=== PATIENT | male | born 1980 | race Caucasian/White ===

== ENCOUNTER 2020-08-25 08:09 | Outpatient (REF) | payer OTHER, SELFPAY ==
[2020-08-25 11:52] LABS: Alanine Aminotransferase 40 U/L (0-40); Albumin Level 4.3 g/dL (3.5-5.0); Alkaline Phosphatase 81 U/L (39-117); Anion Gap 13 (12-20); Aspartate Amino Transferase 28 U/L (5-37); Bilirubin Total 0.6 mg/dL (0.0-1.0); Blood Urea Nitrogen 20 mg/dL (9-16); Calcium 8.8 mg/dL (8.4-10.2); Carbon Dioxide 24 mmol/L (22-29); Chloride 109 mmol/L (96-108); Cholesterol 142 mg/dL; Estimated Glomerular Filt Rate > 60; Glucose Fasting 89 mg/dL (60-99); HDL Cholesterol 36 mg/dL; LDL Cholesterol Calculated 92 mg/dl; Potassium 4.4 mmol/L (3.3-5.1); Sodium 142 mmol/L (135-145); Total Protein 6.6 g/dL (6.5-8.0); Triglycerides 71 mg/dL
[2020-08-25 12:14] LABS: TSH reflex Free T4 0.29 uIU/mL (0.32-4.0)
[2020-08-25 12:50] LABS: Free T4 (Free Thyroxine) 0.87 ng/dL (0.71-1.85)
[2020-08-29 15:11] LABS: Testosterone, Free 46.8 pg/mL (35.0-155.0); Testosterone, Total 418 ng/dL (250-1100)
== END 2020-08-25 08:10 | disposition home or self-care (01) ==
LOC: HO.HMGCLDS 08:09
PROVIDERS: PCP Nurse Practitioner Family; Visit Provider Nurse Practitioner Family
DX: Z00.00 Encounter for general adult medical examination without abnormal findings (principal); N52.9 Male erectile dysfunction, unspecified
CPT/HCPCS: 36415; 80053; 80061; 84402; 84403; 84439; 84443

== ENCOUNTER 2020-08-26 14:02 | Outpatient (REF) | payer OTHER, SELFPAY ==
--- NOTE | ~2020-08-26 | US_ITS ---
EXAMINATION: US THYROID CLINICAL INFORMATION: Abnormal blood work COMPARISON: Ultrasound renal 06/16/2011. TECHNIQUE: Linear transducer grayscale and color Doppler examination with attention to the region of the thyroid. FINDINGS: SIZE: Measurements of the thyroid lobes and nodules are given in sagittal, anteroposterior and transverse dimensions respectively. Right Thyroid Lobe: 5.81 x 1.93 x 1.25 cm, volume 7.36 mL. Parenchyma: The gland echotexture is homogeneous. Thyroid vascularity is increased. Left Thyroid Lobe: 5.12 x 1.63 x 1.22 cm, volume 5.33 mL. Parenchyma: The gland echotexture is homogeneous. Thyroid vascularity is increased. Isthmus: 0.18 cm in maximum AP dimension. Estimated total number of nodules greater than or equal to 1 cm: 0. [employer] nodules are described as follows: NODES: No lymphadenopathy is seen in the tissue surrounding the thyroid gland. US/US thyroid IMPRESSION: Slightly hypervascular thyroid gland. The thyroid gland is normal in size and no nodule is seen.
== END 2020-08-26 14:03 | disposition home or self-care (01) ==
LOC: HO.HMGCX 14:02
PROVIDERS: PCP Nurse Practitioner Family; Visit Provider Nurse Practitioner Family
DX: R79.89 Other specified abnormal findings of blood chemistry (principal)
CPT/HCPCS: 76536

== ENCOUNTER 2020-10-28 07:37 | Outpatient (REF) | payer OTHER, SELFPAY ==
[2020-10-28 09:20] LABS: Free T4 (Free Thyroxine) 0.92 ng/dL (0.71-1.85); Thyroid Stimulating Hormone 0.36 uIU/mL (0.32-4.0); Vitamin D 25-OH Total 33.9 ng/mL (>30)
[2020-10-30 18:52] LABS: Triiodothyronine T3 Total 83 ng/dL (76-181)
[2020-10-31 04:32] LABS: Thyroglobulin Antibodies <1 IU/mL (< or = 1); Thyroid Peroxidase Antibodies <1 IU/mL (<9)
[2020-11-03 15:12] LABS: Thyroid Stimulating Immunoglob <89 % baseline (<140)
[2020-11-04 11:06] LABS: Thyrotropin Receptor Antibody <1.00 IU/L (<=2.00)
== END 2020-10-28 07:38 | disposition home or self-care (01) ==
LOC: HO.LAB 07:37
PROVIDERS: PCP Internal Medicine; Visit Provider Internal Medicine
DX: E05.90 Thyrotoxicosis, unspecified without thyrotoxic crisis or storm (principal); E55.9 Vitamin D deficiency, unspecified
CPT/HCPCS: 36415; 82306; 83520; 84439; 84443; 84445; 84480; 86376; 86800; 99202

== ENCOUNTER 2020-11-13 14:14 | Outpatient (REF) | payer OTHER, SELFPAY ==
--- NOTE | ~2020-11-13 | US_ITS ---
EXAMINATION: US THYROID CLINICAL INFORMATION: Thyrotoxicosis, unspecified without thyrotoxic crisis or storm. COMPARISON: Ultrasound soft tissue head/neck thyroid dated 08/26/2020. TECHNIQUE: Linear transducer grayscale and color Doppler examination with attention to the region of the thyroid. FINDINGS: SIZE: Measurements of the thyroid lobes and nodules are given in sagittal, anteroposterior and transverse dimensions respectively. Right Thyroid Lobe: 5.64 x 2.04 x 1.28 cm, volume 7.71 mL. Previously 5.81 x 1.93 x 1.25 cm, volume 7.36 mL. Parenchyma: The gland echotexture is homogeneous. Thyroid vascularity is increased. Left Thyroid Lobe: 5.09 x 1.66 x 1.26 cm, volume 5.59 mL. Previously 5.12 x 1.63 x 1.22 cm, volume 5.33 mL. Parenchyma: The gland echotexture is homogeneous. Thyroid vascularity is increased. Isthmus: 0.48 cm in maximum AP dimension. Previously 0.18 cm. No focal thyroid nodule is seen. NODES: No lymphadenopathy is seen in the tissue surrounding the thyroid gland. US/US thyroid IMPRESSION: Slightly hypervascular thyroid gland similar in size to previous study. No focal nodules seen. ACR TI-RADS RECOMMENDATION REFERENCE: Ultrasound-guided fine-needle aspiration, followup ultrasound, no further follow up. * TR1 (0 point) and TR 2 (2 points): No FNA or follow up * TR3 (3 points): FNA if more than or equal to 2.5 cm in maximum dimension, followup ultrasound in 1, 3 and 5 years if 1.5 to 2.4 cm in maximum dimension. * TR4 (4-6 points): FNA if more than or equal to 1.5 cm in maximum dimension, followup ultrasound in 1, 2, 3 and 5 years if 1 to 1.4 cm in maximum dimension. * TR5 (more than or equal to 7 points): FNA if more than or equal to 1 cm in maximum dimension, followup ultrasound every year for 5 years if 0.5 to 0.9 cm in maximum dimension. * TR3, TR4 or TR5 nodules that are below the size threshold for follow up receive no follow up.
== END 2020-11-13 14:15 | disposition home or self-care (01) ==
LOC: HO.HMGCX 14:14
PROVIDERS: PCP Nurse Practitioner Family; Visit Provider Internal Medicine
DX: E05.90 Thyrotoxicosis, unspecified without thyrotoxic crisis or storm (principal)
CPT/HCPCS: 76536

== ENCOUNTER → 2020-12-02 10:24 | Outpatient (REF) | payer OTHER, SELFPAY ==
--- NOTE | ~2020-12-02 | NM_ITS ---
EXAMINATION: THYROID UPTAKE AND SCAN CLINICAL INFORMATION: Thyrotoxicosis. COMPARISON: No previous radionuclide thyroid scan is available for comparison. Thyroid ultrasound dated 11/13/2020 is available for comparison. TECHNIQUE: Following the oral administration of 270 microcuries of I-123 sodium iodide, thyroid uptake was performed and expressed as a percentage of the administrated dose. Gamma scintillation camera images of the thyroid in the anterior and right and left anterior oblique views were obtained using a pinhole collimator following the administration of 10 mCi Tc-99m pertechnetate. FINDINGS: The uptake is 7.6% at 4 hours and 14.1% at 24 hours (Normal radioiodine uptake at 24 hours is 10% to 30%). The radioiodine uptake is normal. The radiopertechnetate thyroid scintigram demonstrates the thyroid gland to be normal in size, shape, and position. There is homogeneous distribution of activity within the the gland with no focal abnormalities noted. The trapping function appears normal. NM/NM thyroid w uptake IMPRESSION: Normal radioiodine uptake. Normal thyroid scan.
== END ==
LOC: HO.NUCMED 10:24
PROVIDERS: PCP Internal Medicine; Visit Provider Internal Medicine
DX: E05.90 Thyrotoxicosis, unspecified without thyrotoxic crisis or storm (principal)
CPT/HCPCS: 78014; A9512; A9516

== ENCOUNTER → 2020-12-23 08:40 | Outpatient (BNVA) | payer OTHER, SELFPAY | PROVIDERS: PCP Nurse Practitioner Family; Visit Provider Internal Medicine | DX: E05.90 Thyrotoxicosis, unspecified without thyrotoxic crisis or storm (principal); E55.9 Vitamin D deficiency, unspecified | CPT/HCPCS: 99212 ==

== ENCOUNTER 2021-11-08 09:14 | Outpatient (REF) | payer OTHER, SELFPAY ==
--- NOTE | ~2021-11-08 | XR_ITS ---
EXAMINATION: XR HAND, RIGHT CLINICAL INFORMATION: Contusion COMPARISON: None TECHNIQUE: PA, lateral, and oblique views of the right hand. FINDINGS: Visualized portion of the distal radius and ulna demonstrate no fracture. Carpal rows are well aligned. No carpal bone fracture. No metacarpal or phalangeal fracture. No focal soft tissue swelling of the hand. No radiopaque foreign body. XR/XR hand RT min 3V IMPRESSION: No fracture.
== END 2021-11-08 09:15 | disposition home or self-care (01) ==
LOC: HO.HMGCX 09:14
PROVIDERS: PCP Nurse Practitioner Family; Visit Provider Internal Medicine
DX: S60.221A Contusion of right hand, initial encounter (principal)
CPT/HCPCS: 73130

== ENCOUNTER → 2022-03-28 13:42 | Outpatient (REF) | payer OTHER, SELFPAY ==
--- NOTE | 2022-03-28 14:17 | HM_ITS ---
* Total monitoring time, 7 days. * Underlying rhythm is sinus. Average ventricular rate 60/Min. Range 38 to 152/Min. Sinus tachycardia present 2.5% the time. * Rare PACs and PVCs with minimal burden. * No significant pauses or AV blocks. * Patient markers noted in association with sinus rhythm. MTDD
== END ==
LOC: HO.CARD 13:42
PROVIDERS: Visit Provider Nurse Practitioner Family
DX: R00.2 Palpitations (principal)
CPT/HCPCS: 93242

== ENCOUNTER 2022-05-24 09:06 | Outpatient (REF) | payer OTHER, SELFPAY ==
--- NOTE | ~2022-05-24 | XR_ITS ---
EXAMINATION: XR ELBOW, LEFT CLINICAL INFORMATION: Elbow pain status post unspecified injury. COMPARISON: None available. TECHNIQUE: AP, lateral, and oblique views of the left elbow. FINDINGS: There is no acute fracture or dislocation. The joint spaces are unremarkable. Mild calcification is seen at the triceps tendon insertion on the olecranon posteriorly. Mild overlying soft tissue swelling. XR/XR elbow LT min 3V IMPRESSION: Mild soft tissue swelling posteriorly. Mild calcification overlying of the distal aspect of the triceps tendon does not appear acute and is likely degenerative in nature/secondary to old injury. Correlate with physical exam and trauma history.
== END 2022-05-24 09:07 | disposition home or self-care (01) ==
LOC: HO.HMGCX 09:06
PROVIDERS: PCP Nurse Practitioner Family; Visit Provider Emergency Medicine
DX: S59.902D Unspecified injury of left elbow, subsequent encounter (principal)
CPT/HCPCS: 73080

== ENCOUNTER → 2022-06-21 13:25 | Outpatient (BNVA) | payer OTHER, SELFPAY | PROVIDERS: PCP Nurse Practitioner Family; Referring Provider Nurse Practitioner Family; Visit Provider Surgery | DX: K42.9 Umbilical hernia without obstruction or gangrene (principal) | CPT/HCPCS: 99202 ==

== ENCOUNTER 2022-07-08 10:21 | Day surgery (SDC) | payer OTHER, SELFPAY ==
[2022-07-06 10:37] VITALS: BMI 25.1
--- NOTE | 2022-07-07 09:04 | P.CONAN_ITS ---
Documented by User: Rosa Andrade NP 07/07/22 09:06 HPI - Anesthesia Eval Consult details Narrative: 42yo M for open Umbilical Hernia Repair with mesh PMFSH Active Problems Active Problems: All Active Problems (Updated 07/06/22 @ 10:35 by Drea Amaya RN) Pharyngitis (Acute) Atypical chest pain (Acute) Erectile dysfunction (Acute) Physical exam (Acute) Low TSH level (Acute) Foot callus (Acute) Physical exam (Acute) Plantar fasciitis, bilateral (Acute) Lesion of uvula (Acute) Impacted cerumen of right ear (Acute) Contusion of hand, right (Acute) Palpitations (Acute) Anxiety (Acute) Umbilical hernia (Acute) ADHD (Acute) Vitamin D deficiency (Acute) Hyperthyroidism (Acute) Erectile dysfunction (Acute) Past Medical History Medical History Erectile dysfunction Hx of attention deficit hyperactivity disorder Hyperthyroidism Vitamin D deficiency Family History Family History Father Knee problem Mother No problems noted. Surgical History Surgical History History of left inguinal hernia repair Hx of knee surgery Social History Social History Housing: Apartment Are you a primary patient care secretary to a significant other at home: No Do you presently have visiting nurse or other home services: No Alcohol intake: never Patient Tobacco Use Status: Former Tobacco user Quit Date: 1 yr ago Tobacco use type: Cigarette Cigarette Packs Per Day: 1 Years Smoked: 12 e-Cigarette/Vaping Use: Currently Using Second Hand Smoke Exposure: Yes Use of substances other than those prescribed or required for medical reasons: Yes Substance Use Type: Marijuana Substance Use Type Other:: Helps w/ ADHD Substance Use Frequency: Daily Have you been hit, kicked, punched, or otherwise hurt by someone within the past year? 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 * Underlying rhythm is sinus.? Average ventricular rate 60/Min.? Range 38 to 152/Min.? Sinus tachycardia present 2.5% the time. * Rare PACs and PVCs with minimal burden. * No significant pauses or AV blocks. * Patient markers noted in association with sinus rhythm. Assessment and Plan Assessment Anesthesia Assessment: Chart Reviewed Documented by User: Mallory Nixon MD 07/08/22 12:51 [facility] Past Medical History Medical History Erectile dysfunction Hx of attention deficit hyperactivity disorder Hyperthyroidism Vitamin D deficiency Family History Family History Father Knee problem Mother No problems noted. Surgical History Surgical History History of left inguinal hernia repair Hx of knee surgery History of Problems with Anesthesia: No Social History Social History Housing: Apartment Are you a primary patient care secretary to a significant other at home: No Do you presently have visiting nurse or other home services: No Alcohol intake: never Patient Tobacco Use Status: Former Tobacco user Quit Date: 1 yr ago Tobacco use type: Cigarette Cigarette Packs Per Day: 1 Years Smoked: 12 e-Cigarette/Vaping Use: Currently Using Second Hand Smoke Exposure: Yes Use of substances other than those prescribed or required for medical reasons: Yes Substance Use Type: Marijuana Substance Use Type Other:: Helps w/ ADHD Substance Use Frequency: Daily Have you been hit, kicked, punched, or otherwise hurt by someone within the past year? 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 * Underlying rhythm is sinus.? Average ventricular rate 60/Min.? Range 38 to 152/Min.? Sinus tachycardia present 2.5% the time. * Rare PACs and PVCs with minimal burden. * No significant pauses or AV blocks. * Patient markers noted in association with sinus rhythm. Airway Mallampati Class: III TM Dist: >3cm Neck ROM: Full Loose/Missing/Broken Teeth: No Heart: RRR Lungs: CTA Assessment and Plan Assessment Anesthesia Assessment: Anesthesia Plan Discussed Final Anesthetic Review History of Problems with Anesthesia: No NPO: Yes ASA Class: II Final Preanesthetic Review: Meds/Allgs Chart Reviewed, Consent Obtained/Reviewed and Anes Risks/Benef Reviewed Patient Risk: Low Procedure Risk: Low Anesthetic Plan Anesthetic Plan: GA Disposition: Standard PACU
--- NOTE | 2022-07-07 14:28 | MHC.SHP ---
Pre-Procedural Eval Section A Date of Service: 07/07/22 The patient is an INPATIENT: No Changes since office visit: No Cold of Flu in the past 2 weeks, No New Medical Problems, No Changes in Medication and No Patient answered all questions The History & Physical has been completed within 30 days and I have reviewed it.: Yes Section B Chief Complaint: Umbilical hernia without obstruction or gangrene Allergies: Allergies Allergy/AdvReac Type Severity Reaction Status Date / Time No Known Allergies Allergy Mild NONE Verified 07/06/22 10:27 Plan I have reviewed the history and physical and performed a pertinent physical examination on my patient. No changes have occurred unless specified. Time Spent With Patient Time: Total time managing care of this patient today ____ minutes.
[2022-07-08 12:32] VITALS: BP 122/65; PULSE 68; RESP 18; TEMP 36.6; O2SAT 100
[2022-07-08] MEDS: Lactated Ringers 1,000 ML 100 ML IVCONT (13:09)
--- NOTE | 2022-07-08 14:45 | W.PM.OPN ---
Operative Note Operative Note Date of Service: 07/08/22 Narrative: Preoperative diagnosis: [] Incarcerated umbilical hernia Postop diagnosis: [] Same Procedure [] repair incarcerated umbilical hernia with Bard mesh Surgeon: [] [place] Scrap Drop Engineer: [] eliel Gardner Type of Anesthesia: [] General Indication for surgery: [] Incarcerated umbilical hernia hernia measuring approximately 3 cm with omental contents Findings: []. She was brought to the OR, placed in your table in the supine position, and after adequate level of general anesthesia with was induced, the patient's abdomen was prepped and draped in usual sterile fashion. Back advancing supraumbilical curvilinear incision, this carried down through skin, subcutaneous tissue, where an incarcerated hernia sac was identified. This was dissected off the posterior aspect of the umbilicus and dissected down to the fascia. Sac was opened wearing incarcerated omental contents were amputated and sent to pathology. The residual omentum was tied using 3-0 Vicryl tie and return to down the cavity. The fascia margins were circumferentially cleared in a Bard mesh placed in defect. The superficial layer of the mass was circumferentially sutured to the surrounding fascia using 0 Ethibond sutures. At completion of procedure, mesh was in very good position with no tension. The wound Was irrigated, secured hemostasis, and closed in the following manner; posterior aspect of the umbilicus was tacked to the wound floor using up to 3-0 Vicryl sutures. Incision was closed using interrupted inverted dermal 3-0 Vicryl sutures followed by Steri-Strips and sterile dressings. Wound was infiltrated 0.5% Marcaine at completion. Sponge, needle, and instrument counts were reported to be correct. Patient tolerated the procedure well and emerged anesthesia and stable condition. EBL minimal
[2022-07-08 15:00] VITALS: BP 120/70; PULSE 79; RESP 20; TEMP 36.8; O2SAT 99
[2022-07-08 15:05] VITALS: BP 112/68; PULSE 57; RESP 18; O2SAT 99
[2022-07-08 15:10] VITALS: BP 113/63; PULSE 57; RESP 18; O2SAT 99
[2022-07-08 15:15] VITALS: BP 104/66; PULSE 63; RESP 16; O2SAT 97
[2022-07-08 15:30] VITALS: BP 117/80; PULSE 61; RESP 15; TEMP 36.8; O2SAT 96
== END 2022-07-08 15:34 | disposition home or self-care (01) ==
PROVIDERS: PCP Nurse Practitioner Family; Visit Provider Surgery
PROC: (CPT 49594; principal; 2022-07-08 12:20)
DX: K42.0 Umbilical hernia with obstruction, without gangrene (principal)
CPT/HCPCS: 49594; 88304; C1781; J0690; J1100; J1170; J2250; J2405; J2795; J3010

== ENCOUNTER → 2022-07-15 08:41 | Outpatient (BNVA) | payer OTHER, SELFPAY | PROVIDERS: PCP Nurse Practitioner Family; Visit Provider Surgery ==

== ENCOUNTER 2022-12-10 09:38 | Outpatient (AMB) | payer OTHER, SELFPAY ==
[2022-12-10 11:27] VITALS: BP 130/76; PULSE 49; O2SAT 97; BMI 26.2
--- NOTE | 2022-12-10 11:27 | MHC.OFFWIV ---
Intake Vital Signs 12/10/22 11:27 Height 5 ft 9 in Weight 177 lb 2 oz BMI 26.2 BP 130/76 Blood Pressure Location Lt brachial Position Sitting Pulse 49 L Pulse Source Pulse Oximeter Pulse Oximetry (%) 97 Oxygen Delivery Method Room Air Intake Visit Reasons: EP-Bump in back of [phone] Intake Note: Patient is here with bump in his neck and back of his tongue, like a mass. He states it's been 2-3 days. Patient Tobacco Use Status: Former Tobacco user Quit Date: 1 yr ago Allergies No Known Allergies Allergy (Mild, Verified 12/10/22 11:28) NONE Do you need a note to return to daycare/school/sports/work: No HPI HPI Comments History of Present Illness Details This is a 42-year-old male who presents to the office today for sick visit. Patient complaining of a lump on the back of his throat. Patient states he was getting musculoskeletal pain radiating from his neck into his throat, which occurred only when he was lifting and pushing his head against the lifting bench. One day, he looked in his throat to make sure there was nothing more serious going on and he noticed a lump on the back of his throat. He denies any stridor/wheezing, throat swelling, difficulty swallowing, or difficulty breathing. He states the lump is not bothersome or troublesome but he wanted it evaluated. [facility] Medical History Vitamin D deficiency Hyperthyroidism Hx of attention deficit hyperactivity disorder Erectile dysfunction Surgical History H/O umbilical hernia repair (07/08/22) History of left inguinal hernia repair Hx of knee surgery Family History Father Knee problem Mother No problems noted. 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 Current occupational exposures/hazards: Yes Cognitive needs: No Hearing needs: No Vision needs: No Review of Systems Const All systems reviewed & are unremarkable except as noted in HPI and below Reports no additional complaints Eyes Reports no additional complaints ENT Reports no additional complaints Card Reports no additional complaints Resp Reports no additional complaints GI Reports no additional complaints Reports no additional complaints Musc Reports no additional complaints Skin/Breast Reports system reviewed and no additional complaints, except as documented Neuro Reports no additional complaints Psych Reports no additional complaints Endo Reports no additional complaints Pablito/Lymph Reports no additional complaints Aller/Immun Reports no additional complaints Physical Exam Vital Signs: Last Vital Signs Pulse 49 L 12/10/22 11:27 BP 130/76 12/10/22 11:27 Pulse Ox 97 12/10/22 11:27 Oxygen Delivery Method Room Air 12/10/22 11:27 BMI result Body Mass Index 26.2 Const Other: Vital signs reviewed. Constitutional: Non-toxic appearing. No acute distress. Well-developed and well-nourished. HEENT: Normocephalic and atraumatic. There is a nodule on the right side of his posterior tongue. There is no fluctuance or induration. There is no drainage. There is no erythema. Appears to be normal tongue tissue. No pharyngeal edema or erythema or exudates. Skin: Warm and dry. No rashes or lesions noted. Neck: Full and painless range of motion. No cervical lymphadenopathy. Cardio: Regular rate. No lower extremity edema. No JVD. Pulmonary: No respiratory distress. No accessory muscle usage. No stridor or audible wheezing. Gastrointestinal: Soft, nontender, and nondistended in all 4 quadrants. Musculoskeletal: Normal range of motion in joints throughout the body. No deformity or other signs of injury. Neuro: Alert and oriented x4. Cranial nerves 2-12 grossly intact. No focal deficits appreciated. Psych: Normal mood and affect. Assessment & Plan Assessment & Plan (1) Nodule of tongue: Code(s): R22.0 - Localized swelling, mass and lump, head Plan: This is a 42-year-old male who presents to the office complaining of a bump on the back of his tongue. On physical examination, there is a nodule which appears to be normal tongue tissue without erythema, drainage, or fluctuance. This nodule does not appear to be causing an airway obstruction or inflammation of the pharynx. He states this nodule is not bothersome or troublesome. His vital signs are stable, his physical exam is otherwise benign, and patient is overall nontoxic appearing. I recommended the patient follow-up with his primary care physician as soon as possible in order to obtain referral for possible biopsy to rule out a malignancy. I have also sent patient with 5% lidocaine patches for his musculoskeletal pain while he is exercising. Patient was advised to follow-up with the emergency room if he were to develop any throat swelling, difficulty breathing, wheezing, or stridor. Patient verbalized understanding and is agreeable with the plan. Medications: New lidocaine 5% leave on most painful area for up to 12 hrs 1 patch topical DAILY 30 ea 0RF Coding Level of Care Code Est Pt Level 3 (13478) Diagnoses Nodule of tongue R22.0
== END 2022-12-10 11:54 | disposition home or self-care (01) ==
PROVIDERS: PCP Nurse Practitioner Family; Visit Provider Physician Assistant Medical
DX: R22.0 Localized swelling, mass and lump, head (principal)
CPT/HCPCS: 99051; 99213

== ENCOUNTER 2022-12-28 08:02 | Outpatient (AMB) | payer OTHER, SELFPAY ==
--- NOTE | 2022-12-28 08:04 | MHC.PC.OV ---
Vital Signs 12/28/22 08:06 Height 5 ft 9 in Weight 178 lb BMI 26.3 BP 138/80 Blood Pressure Location Rt brachial Position Sitting Pulse 56 Pulse Source Pulse Oximeter Pulse Oximetry (%) 98 Oxygen Delivery Method Room Air Intake Visit Reasons: Annual PE Allergies No Known Allergies Allergy (Mild, Verified 12/28/22 08:06) NONE Tobacco use date assessed: 06/14/22 Dental Screening Dental Screen Date: 12/28/22 Did you have a dental visit in the last 12 months?: No Did you have a dental problem in the last 6 months where you did not have access to dental care?: No Was dental information given to patient?: Patient has dentist HPI Annual PE HPI Details pt is here for a PE. pt does not smoke cigarettes but marijuana. He reports having a tongue lesion to the right base of his tongue. Will refer to ENT [facility] Medical History (Updated 12/28/22 @ 08:29 by KONG FullerMEGAN) Vitamin D deficiency Hyperthyroidism Hx of attention deficit hyperactivity disorder Erectile dysfunction Surgical History H/O umbilical hernia repair (07/08/22) History of left inguinal hernia repair Hx of knee surgery Family History Father Knee problem Mother No problems noted. 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 Rome Arias, Tika Brumfield, Angel Ortiz and colleagues, with an educational tyrese from [employer]. Review of Systems Const Denies chills and Denies fever(s) Eyes Denies blurry vision ENT Denies vertigo, Denies dizziness and Denies sore throat Card Denies chest pain at rest, Denies chest pain with activity, Denies diaphoresis, Denies dyspnea and Denies dyspnea on exertion Resp Denies cough, Denies dyspnea, Denies dyspnea on exertion and Denies wheezing GI Denies abdominal pain, Denies melena, Denies hematochezia, Denies constipation, Denies diarrhea and Denies loose stools Denies hematuria Musc Denies numbness and Denies tingling Skin/Breast Denies lesions Neuro Denies vertigo, Denies dizziness, Denies numbness and Denies tingling Psych Denies anxiety, Denies depression, Denies homicidal ideation, Denies suicidal ideation and Denies other (substance abuse) Aller/Immun Denies wheezing Physical exam (Primary Care) Vital Signs: Last Vital Signs Pulse 56 12/28/22 08:06 BP 138/80 12/28/22 08:06 Pulse Ox 98 12/28/22 08:06 Oxygen Delivery Method Room Air 12/28/22 08:06 BMI result Body Mass Index 26.3 Tobacco/Smoking Status: Tobacco use Status Tobacco use date assessed 06/14/22 12/28/22 08:09 Patient Tobacco Use Status Former Tobacco user 12/28/22 08:09 Tobacco use type Cigarette 12/28/22 08:09 e-Cigarette/Vaping Use Currently Using 12/28/22 08:09 Thrive Assessment: Date of Thrive Assessment Date Thrive assessed 03/17/22 12/28/22 08:09 Const General: cooperative Nutritional Appearance: well nourished Orientation/consciousness: patient oriented x3 HENMT Other: base of right tongue with small raised whitish lesion. Head: Yes normal to inspection, Yes normocephalic and Yes atraumatic Ears: TM normal on the right and TM normal on the left Eyes General: appearance normal, both eyes and all related structures Alignment and Position: alignment normal and position normal Neck Neck: Yes normal visual inspection and Yes no lymphadenopathy Resp Effort & Inspection: normal respiratory effort Auscultation: clear to auscultation bilaterally Cardio Rate: regular rate Rhythm: regular rhythm Heart sounds: S1 normal heart sound present, S2 normal heart sound present and no murmurs GI Palpation (GI): Soft to palpation and nontender Auscultation: normal bowel sounds Other: refused Skin Rashes: no rashes Neuro General: patient oriented x3, moves all extremities, no focal motor deficits and deep tendon reflexes 2+ bilaterally Romberg Test: Negative Extrem Right lower extremity: no edema Left lower extremity: no edema Psych Affect: normal affect Attitude: cooperative Thought process: Normal thought process present Assessment and Plan Assessment & Plan (1) Physical exam: Code(s): Z00.00 - Encounter for general adult medical examination without abnormal findings (2) Tongue lesion: Code(s): K14.8 - Other diseases of tongue Orders: Orders UA CC w/rflx Micro + Cult Today Z00.00 - Encounter for general adult medical examination without abnormal findings Lipid Panel Today Z00.00 - Encounter for general adult medical examination without abnormal findings Complete Blood Count Auto Diff Today Z00.00 - Encounter for general adult medical examination without abnormal findings Comprehensive [place]. Panel Fast Today Z00.00 - Encounter for general adult medical examination without abnormal findings TSH reflex Free T4 Today Z00.00 - Encounter for general adult medical examination without abnormal findings Referrals Ear/Nose/Throat Referral K14.8 - Other diseases of tongue Coding Level of Care Code Est Pt Prev Care 40-64y(02355) Diagnoses Physical exam Z00. Tongue lesion K14.8
[2022-12-28 08:06] VITALS: BP 138/80; PULSE 56; O2SAT 98; BMI 26.3
== END 2022-12-28 08:42 | disposition home or self-care (01) ==
PROVIDERS: PCP Nurse Practitioner Family; Visit Provider Nurse Practitioner Family
DX: Z00.00 Encounter for general adult medical examination without abnormal findings (principal); K14.8 Other diseases of tongue
CPT/HCPCS: 99396

== ENCOUNTER 2023-03-01 09:04 | Outpatient (AMB) | payer OTHER, SELFPAY ==
[2023-03-01 09:59] VITALS: BP 127/72; PULSE 87; TEMP 36.7; O2SAT 97; BMI 26.1
--- NOTE | 2023-03-01 09:59 | MHC.OFFWIV ---
Intake Vital Signs 03/01/23 09:59 Height 5 ft 9 in Weight 176 lb 8 oz BMI 26.1 BP 127/72 Blood Pressure Location Rt brachial Position Sitting Pulse 87 Pulse Source Pulse Oximeter Temp 98.1 F Temp Source Temporal Artery Scan Pulse Oximetry (%) 97 Oxygen Delivery Method Room Air Intake Visit Reasons: EP, swollen glands, neck pain([phone]) Intake Note: pt is here today for swollen gland neck pain started 2 months ago Patient Tobacco Use Status: Former Tobacco user Quit Date: 1 yr ago Allergies No Known Allergies Allergy (Mild, Verified 03/01/23 10:30) NONE Medication List - Last Reconciled 03/01/23 by Ridge Lewis MD No Known Home Meds Do you need a note to return to daycare/school/sports/work: Yes HPI EP, swollen glands, neck pain([phone]) HPI Details 42-year-old male presents to the office for a sick visit. Two months ago patient was then shingles weights at the gym and he felt a snap in the neck. Subsequently he has been having pain and discomfort radiating into both sides of the neck into the shoulder. He also has noticed some discomfort on the right side of his jaw. For an unrelated reason, he has been seeing a year nose throat physician who has a procedure planned. This involves removing a lesion from the back of his throat. Patient smokes tobacco regularly for many years. [facility] Medical History (Updated 12/28/22 @ 08:29 by KONG Fuller-MEGAN) Vitamin D deficiency Hyperthyroidism Hx of attention deficit hyperactivity disorder Erectile dysfunction Surgical History H/O umbilical hernia repair (07/08/22) History of left inguinal hernia repair Hx of knee surgery Family History Father Knee problem Mother No problems noted. Social History Housing: Apartment Are you a primary patient care specialist to a significant other at home: No Do you presently have visiting nurse or other home services: No Alcohol intake: never Patient Tobacco Use Status: Former Tobacco user Quit Date: 1 yr ago Tobacco use type: Cigarette Cigarette Packs Per Day: 1 Years Smoked: 12 e-Cigarette/Vaping Use: Currently Using Second Hand Smoke Exposure: Yes Substance Use Type: Marijuana Current occupational status: employed Current occupation: [employer] Current occupational exposures/hazards: Yes Cognitive needs: No Hearing needs: No Vision needs: No Physical Exam Vital Signs: Last Vital Signs Temp 98.1 F 03/01/23 09:59 Pulse 87 03/01/23 09:59 BP 127/72 03/01/23 09:59 Pulse Ox 97 03/01/23 09:59 Oxygen Delivery Method Room Air 03/01/23 09:59 BMI result Body Mass Index 26.1 Const General: cooperative and healthy appearing Nutritional Appearance: well nourished Orientation/consciousness: patient oriented x3 Limitations: no limitations HEENT Head: Yes normal to inspection Eyes General: appearance normal, both eyes and all related structures Neck Other: Full range of motion. Neck: Yes normal visual inspection Chest Chest palpation & inspection: normal palpation of entire chest wall Resp Effort & Inspection: normal respiratory effort Neuro General: patient oriented x3 Assessment & Plan Assessment & Plan (1) Neck pain: Code(s): M54.2 - Cervicalgia Plan: Patient was advised to get the ENT procedure done. Based on the results further evaluation of the symptoms of pain or discomfort in the neck can be started. Meloxicam and cyclobenzaprine have been ordered to help with the neck symptoms. Coding Level of Care Code Est Pt Level 3 (46685) Diagnoses Neck pain M54.2
== END 2023-03-01 10:30 | disposition home or self-care (01) ==
PROVIDERS: PCP Nurse Practitioner Family; Visit Provider Internal Medicine
DX: M54.2 Cervicalgia (principal)
CPT/HCPCS: 99213

== ENCOUNTER 2023-03-28 10:49 | Outpatient (AMB) | payer OTHER, SELFPAY ==
[2023-03-28 10:50] VITALS: BP 120/70; PULSE 70; TEMP 36.4; O2SAT 99; BMI 25.8
--- NOTE | 2023-03-28 10:50 | MHC.OFFWIV ---
Intake Vital Signs 03/28/23 10:50 Height 5 ft 9 in Weight 79.379 kg BMI 25.8 BP 120/70 Blood Pressure Location Lt brachial Position Sitting Pulse 70 Pulse Source Pulse Oximeter Temp 97.5 F Pulse Oximetry (%) 99 Oxygen Delivery Method Room Air Intake Visit Reasons: EST/neck pain/ back (lobby) Intake Note: Pt is here c/o neck, back and right shoulder pain. Pt states he was benching at the gym and had is back atched, pt states he heard a snap and immediatley stopped. Pt states he left the gym and felt a whip lash sensation the next day. Pt states the pain hasn't gotten worse but it hasn't gotten better. Pt states it happened three weeks ago. Patient Tobacco Use Status: Former Tobacco user Quit Date: 1 yr ago Allergies No Known Allergies Allergy (Mild, Verified 03/28/23 10:53) NONE Do you need a note to return to daycare/school/sports/work: No HPI HPI Comments History of Present Illness Details This is a 42-year-old male presenting to the clinic for evaluation of neck pain, shoulder pain, upper back pain status post lifting at the gym patient reports he was doing bench press 305 lbs, about 3 weeks ago he went to lift a weight up he heard a weird noise in his neck/back region, immediately he put the weight down any has been having constant aching/discomfort in the neck/shoulder region and upper back region at times into neck and RUE . He reports the pain has remained the same over the past 3 weeks not improving and not worsening. Denies any history of herniated discs. Denies blunt trauma. Denies upper extremity clumsiness, weakness, headache, vision changes, nausea, vomiting, abdominal pain, chest pain, shortness of breath, numbness and tingling. On exam there is tenderness to the upper back throughout the upper thoracic region and to bilateral trapezius region. No midline tenderness in the cervical region. No meningeal signs. Patient reports some discomfort with range of motion of neck and tightness to bilateral shoulders with range of motion of shoulders. 2+ radial pulses. No wrist drop. Normal strength upper extremities. History and physical exam concerning for upper thoracic sprain and strain, trapezius muscle spasm/strain, ligamentous injury. Unlikely cervical myelopathy, fracture, dislocation. Herniated disc cannot be ruled out based off mechanism of injury. Unlikely dissection. There is no signs of cord compression or cauda equina Plan at this time Toradol, cyclobenzaprine, Lidoderm patch. Patient to follow-up with [facility] spine and sport but will 1st have to go to was PCP for referral. Educated patient on diagnosis and treatment plan, answered all question, patient verbalizes understanding. At this time patient will be discharged home, advised to return with new or worsening symptoms. Educated on worrisome signs and symptoms and when to return. At this time I feel comfortable discharge home. Spoke to pcp i recommend spine and sport refferal and mri [facility] Medical History Vitamin D deficiency Hyperthyroidism Hx of attention deficit hyperactivity disorder Erectile dysfunction Surgical History H/O umbilical hernia repair (07/08/22) History of left inguinal hernia repair Hx of knee surgery Family History Father Knee problem Mother No problems noted. 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 Oriented X3.? No acute distress.? Head: Normocephalic, atraumatic, no step-offs or deformities Eyes: Pupils equal, round and reactive to light.? CVS: Normal heart rate and rhythm.? Pulses normal.? Respiratory: No respiratory distress.? Breath sounds normal.? Abdomen: Soft and nontender.? Skin: Skin warm and dry.? Normal skin color.? Normal skin turgor.? Extremities: No lower extremity edema.? No calf ttp. 5/5 strength to bilateral upper and lower extremities Back: No midline tenderness, no C-spine tenderness, full range of motion, no CVA tenderness bilaterally.tenderness to the upper back throughout the upper thoracic region and to bilateral trapezius region. No midline tenderness in the cervical region. No meningeal signs. Patient reports some discomfort with range of motion of neck and tightness to bilateral shoulders with range of motion of shoulders. 2+ radial pulses. No wrist drop. Normal strength upper extremities. Neuro: Oriented X 3.? No motor deficit.? No sensory deficit. CN 2-12 intact Assessment & Plan Assessment & Plan (1) Trapezius muscle strain: Code(s): S46.819A - Strain of other muscles, fascia and tendons at shoulder and upper arm level, unspecified arm, initial encounter (2) Neck pain: Code(s): M54.2 - Cervicalgia (3) Shoulder pain: Code(s): M25.519 - Pain in unspecified shoulder Plan Take your medications as prescribed. If you were prescribed antibiotics today, it is important that you take your medication to their entirety, do not skip any doses, do not finish them early. Follow-up with your primary care provider this week. Return to the emergency department with new or worsening symptoms. Such as fevers, chills, chest pain, shortness of breath, nausea, vomiting, dizziness, headache, vision changes, lethargy In case of emergency call 911 You should see a Spine and Sport specialist. Please follow-up with your primary care provider. Orders: Orders XR cervical spine 2V Today S46.819A - Strain of other muscles, fascia and tendons at shoulder and upper arm level, unspecified arm, initial encounter Medications: New prednisone 40 mg (2 x 20 mg) PO DAILY 10 tabs 0RF 5 days diclofenac sodium 1% (Voltaren Arthritis Pain) apply to single elbow, wrist or hand; for hand includes palm/fingers/back of hand 2 grams topical QID 100 grams 2RF Coding Level of Care Code Est Pt Level 3 (25416) Diagnoses Trapezius muscle strain S46.819A Neck pain M54.2 Shoulder pain M25.519
== END 2023-03-28 11:31 | disposition home or self-care (01) ==
PROVIDERS: PCP Nurse Practitioner Family; Visit Provider Physician Assistant
DX: S46.819A Strain of other muscles, fascia and tendons at shoulder and upper arm level, unspecified arm, initial encounter (principal); M54.2 Cervicalgia; M25.519 Pain in unspecified shoulder
CPT/HCPCS: 99213

== ENCOUNTER 2023-03-28 11:08 | Outpatient (REF) | payer OTHER, SELFPAY ==
--- NOTE | ~2023-03-28 | XR_ITS ---
EXAMINATION: XR CERVICAL SPINE CLINICAL INFORMATION: Neck pain. COMPARISON: None available. TECHNIQUE: 3 views of the cervical spine were obtained. FINDINGS: There are no prevertebral soft tissue or bony abnormalities demonstrated. No compression fractures or subluxations are identified. Alignment is maintained at the atlanto-axial articulation. There is mild right C4-C5 and C5-C6 facet joint arthropathy. No lytic or sclerotic process seen. Paravertebral soft tissues are normal. XR/XR cervical spine 2V IMPRESSION: Mild right C4-C5 and C5-C6 facet joint arthropathy and hypertrophy. Otherwise unremarkable cervical spine exam.
== END 2023-03-28 11:09 | disposition home or self-care (01) ==
LOC: HO.HMGCX 11:08
PROVIDERS: PCP Nurse Practitioner Family; Visit Provider Physician Assistant
DX: S46.819A Strain of other muscles, fascia and tendons at shoulder and upper arm level, unspecified arm, initial encounter (principal); M54.2 Cervicalgia; X58.XXXA Exposure to other specified factors, initial encounter; Y93.9 Activity, unspecified; Y92.9 Unspecified place or not applicable; Y99.9 Unspecified external cause status
CPT/HCPCS: 72040

== ENCOUNTER 2023-05-02 08:14 | Outpatient (REF) | payer OTHER, SELFPAY ==
[2023-05-02 11:32] LABS: MANUAL DIFF FLAG NO
[2023-05-02 11:38] LABS: Appearance Urine Clear; Color Urine Yellow; Glucose Urine UA Negative (Negative); Leukocyte Esterase Urine Negative (Negative); Nitrite Urine Negative (Negative); Urine Blood Negative (Negative); Urine Ketones Negative (Negative); Urine Protein Negative (Neg-Trace)
[2023-05-02 11:45] LABS: Basophils Absolute Auto 0.1 X10*3/uL (0.0-0.2); Basophils Percent Auto 0.5 % (0-2); Eosinophils Absolute Auto 0.1 X10*3/uL (0.0-0.4); Eosinophils Percent Auto 0.8 % (0-4); Hematocrit 43.1 % (42.0-52.0); Hemoglobin 14.6 g/dl (14.0-18.0); Imm Gran Abs Auto 0.04 X10*3/uL (0.00-0.03); Imm Gran Pct Auto 0.3 % (0.0-0.4); Lymphocytes Absolute Auto 1.9 X10*3/uL (1.2-4.9); Lymphocytes Percent Auto 15.4 % (20-40); Mean Corpuscular HGB Conc 33.9 g/dl (31.0-36.0); Mean Corpuscular Volume 94.5 fL (80.0-98.0); Mean Platelet Volume 10.8 fL (9.4-12.4); Monocytes Absolute Auto 1.2 X10*3/uL (0.1-1.2); Neutrophils Absolute Auto 8.9 x10*3/uL (2.0-8.3); Platelet Count 248 X10*3/uL (160-400); Red Blood Count 4.56 X10*6/uL (4.60-5.80); Red Cell Distribution Width 13.8 % (11.0-16.0); White Blood Count 12.2 X10*3/uL (4.8-10.8)
[2023-05-02 12:26] LABS: Alanine Aminotransferase 18 U/L (0-40); Albumin Level 4.2 g/dL (3.5-5.0); Alkaline Phosphatase 87 U/L (39-117); Anion Gap 10 (12-20); Aspartate Amino Transferase 23 U/L (5-37); Bilirubin Total 0.4 mg/dL (0.0-1.0); Blood Urea Nitrogen 14 mg/dL (9-16); Calcium 9.2 mg/dL (8.4-10.2); Carbon Dioxide 27 mmol/L (22-29); Chloride 108 mmol/L (96-108); Cholesterol 131 mg/dL (<200); Estimated Glomerular Filt Rate > 60; Glucose Fasting 96 mg/dL (60-99); HDL Cholesterol 35 mg/dL (>40); LDL Cholesterol Calculated 87 mg/dL (<100); Potassium 4.2 mmol/L (3.3-5.1); Sodium 141 mmol/L (135-145); TSH reflex Free T4 0.41 uIU/mL (0.32-4.0); Total Protein 6.9 g/dL (6.5-8.0); Triglycerides 49 mg/dL (<150)
== END 2023-05-02 08:15 | disposition home or self-care (01) ==
LOC: HO.HMGCLDS 08:14
PROVIDERS: PCP Nurse Practitioner Family; Visit Provider Nurse Practitioner Family
DX: Z00.00 Encounter for general adult medical examination without abnormal findings (principal)
CPT/HCPCS: 36415; 80053; 80061; 81003; 84443; 85025

== ENCOUNTER → 2023-11-14 06:46 | Outpatient (BNVA) | payer OTHER, SELFPAY | PROVIDERS: PCP Nurse Practitioner Family; Visit Provider Nurse Practitioner Family ==

== ENCOUNTER 2024-01-22 10:18 | Outpatient (AMB) | payer OTHER, SELFPAY ==
[2024-01-22 10:34] VITALS: BP 120/86; PULSE 72; O2SAT 97; BMI 25.5
--- NOTE | 2024-01-22 10:34 | MHC.PC.OV ---
Vital Signs 01/22/24 10:34 Height 5 ft 9 in Weight 173 lb BMI 25.5 BP 120/86 Blood Pressure Location Rt brachial Position Sitting Pulse 72 Pulse Source Pulse Oximeter Pulse Oximetry (%) 97 Oxygen Delivery Method Room Air Intake Visit Reasons: Annual PE w/ labs Intake Note: Pt is here today for his Annual physical Allergies No Known Allergies Allergy (Mild, Verified 01/22/24 10:40) NONE Tobacco use date assessed: 01/22/24 Dental Screening Dental Screen Date: 01/22/24 Did you have a dental visit in the last 12 months?: Yes Did you have a dental problem in the last 6 months where you did not have access to dental care?: No Was dental information given to patient?: Patient has dentist HPI Annual PE w/ labs HPI Details Chief Complaint The patient reports chronic sinus pressure, thoracic back pain, and concerns about earwax buildup. 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 - Hearing: Reports unilateral earwax buildup. Physical Exam -s1 s2, no murmurs - Neurologic- Negative finding upon Romberg test. - Respiratory- Observed sinus congestion complaints. --scotum intact, no sigsn of hernias or testicular lesions - Otolaryngologic- Right ear with visible cerumen impaction; left ear clear., no lymphadenopathy - Musculoskeletal- no tenderness with palpation of thoracic spine, slight discomfort to upper thoracic paraspinous muscles of upper thoracic spine. - podiatry- 4th toes, bilat, plantar aspect with callous/corn formation, no active signs of infection Results Plan Patient was informed and verbally consented to the use of an ambient scribe for clinic note documentation during this visit. Discussion Notes HERE FOR PE AND OTHER ISSUES. I discussed with the patient the diagnosis of chronic sinusitis, likely aggravated by environmental or structural factors. We agreed on initiating oral prednisone to relieve inflammation. Additionally, I recommended referring to a chiropractor to explore therapeutic options for thoracic back pain, emphasizing the potential of animal care assistant in improving mobility and pain levels. The importance of using an earwax removal kit, as opposed to unsafe manual removal methods, was highlighted for cerumen impaction. I acknowledged the plantar callus issue and emphasized seeing a photonic laboratory technician for definitive management. I also encouraged him to confirm his participation in a colonoscopy screening due to his age. Patient Instructions - Use the prescribed prednisone as directed and monitor for symptom resolution. - Employ an earwax removal kit for safe management of earwax buildup. - Schedule and attend thoracic spine X-ray for further investigation. - Follow up with a photonic laboratory technician for callus management on bilateral fourth toes. - Arrange for a chiropractic consultation (requested by pt) for thoracic back pain and proceed with recommended management. - Ensure periodic annual health evaluations and pursue recommended screenings such as colonoscopy. [facility] Medical History Vitamin D deficiency Hyperthyroidism Hx of attention deficit hyperactivity disorder Erectile dysfunction Surgical History H/O umbilical hernia repair (07/08/22) History of left inguinal hernia repair Hx of knee surgery Family History Father Knee problem Mother No problems noted. 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 1. Little interest or pleasure in doing things: not at all 2. Feeling down, depressed, or hopeless: more than half the days 3. Trouble falling or staying asleep, or sleeping too much: not at all 4. Feeling tired or having little energy: more than half the days 5. Poor appetite or overeating: several days 6. Feeling bad about yourself - or that you are a failure or have let yourself or your family down: more than half the days 7. Trouble concentrating on things, such as reading the newspaper or watching television: not at all 8. Moving or speaking so slowly that other people could have noticed. Or the opposite - being so fidgety or restless that you have been moving around a lot more than usual: more than half the days 9. Thoughts that you would be better off or of hurting yourself in some way: not at all Total score: 9 Depression Screening Interpretation: Negative Depression Screening Done: Yes 29385 - PHQ-9 Billing: Yes Source: Developed by Drs. Rome Arias, Tika Brumfield, Angel Ortiz and colleagues, with an educational tyrese from [employer]. Thrive Questionnaire Date Thrive assessed: 01/22/24 I am a: Patient What is your living situation today?: I have a steady place to live Within the past 12 months, did the food you bought not last and you didn't have the money to get more?: Sometimes True Within the past 12 months, did you worry whether your food would run out before you got money to buy more?: Never true Do you have trouble paying for medicines?: No Do you have trouble getting transportation to medical appointments?: No Do you have trouble paying your heating and electricity bill?: No Do you have trouble taking care of your child, family member or friend?: No Do you have trouble with day-to-day activities such as bathing, preparing meals, shopping, managing finances, etc.?: No Are you currently unemployed and looking for a job?: No Are you interested in more education?: No Please select the resources that you would like help with: None Currently or been in a relationship where the following occur: No concerns reported THRIVE Score: 1 AUDIT C Alcohol Use Questionnaire (AUDIT-C) 1. How often do you have a drink containing alcohol?: Never 3. How often do you have six or more drinks on one occasion?: Never Total Score: 0 Score Reviewed/Action Taken: Yes SAMINA-7 AMB Questionnaire SAMINA-7 Date SAMINA - 7 assessed: 01/22/24 Feeling nervous, anxious, or on edge: 1 = Several days Not being able to stop or control worryin = Several days Worrying too much about different things: 1 = Several days Trouble relaxin = Several days Being so restless that it is hard to sit still: 1 = Several days Becoming easily annoyed or irritable: 1 = Several days Feeling afraid as if something awful might happen: 1 = Several days Total SAMINA-7 score (0-4 normal; 5-9 mild; 10-14 moderate; 15-21 severe): 7 Source: Developed by Drs. Rome Arias, Tika Brumfield, Angel Ortiz and colleagues, with an educational tyrese from [employer]. SAMINA-7 Assessment Billing SAMINA-7 Assessment Tool: SAMINA-7 Assessment 24840 Review of Systems Const Denies chills and Denies fever(s) Eyes Denies blurry vision ENT Denies vertigo, Denies dizziness and Denies sore throat Card Denies chest pain at rest, Denies chest pain with activity, Denies diaphoresis, Denies dyspnea and Denies dyspnea on exertion Resp Denies cough, Denies dyspnea, Denies dyspnea on exertion and Denies wheezing GI Denies abdominal pain, Denies melena, Denies hematochezia, Denies constipation, Denies diarrhea and Denies loose stools Denies hematuria Musc Denies numbness and Denies tingling Skin/Breast Denies lesions Neuro Denies vertigo, Denies dizziness, Denies numbness and Denies tingling Psych Denies anxiety, Denies depression, Denies homicidal ideation, Denies suicidal ideation and Denies other (substance abuse) Aller/Immun Denies wheezing Physical exam (Primary Care) Vital Signs: Last Vital Signs Pulse 72 01/22/24 10:34 BP 120/86 01/22/24 10:34 Pulse Ox 97 01/22/24 10:34 Oxygen Delivery Method Room Air 01/22/24 10:34 BMI result Body Mass Index 25.5 Tobacco/Smoking Status: Tobacco use Status Tobacco use date assessed 01/22/24 01/22/24 10:42 Patient Tobacco Use Status Former Tobacco user 01/22/24 10:39 Tobacco use type Cigarette 01/22/24 10:39 e-Cigarette/Vaping Use Currently Using 01/22/24 10:39 PHQ-9: PHQ-9 Score PHQ-9: Total score 9 01/22/24 10:42 Depression Screening Interpretation: Negative Thrive Assessment: Date of Thrive Assessment Date Thrive assessed 01/22/24 01/22/24 10:42 Currently or been in a relationship where the following occur: No concerns reported Const General: cooperative Nutritional Appearance: well nourished Orientation/consciousness: patient oriented x3 HENMT Head: Yes normal to inspection, Yes normocephalic and Yes atraumatic Ears: TM normal on the left Eyes General: appearance normal, both eyes and all related structures Alignment and Position: alignment normal and position normal Neck Neck: Yes normal visual inspection, Yes no lymphadenopathy and Yes supple Resp Effort & Inspection: normal respiratory effort Auscultation: clear to auscultation bilaterally Cardio Rate: regular rate Rhythm: regular rhythm Heart sounds: S1 normal heart sound present, S2 normal heart sound present and no murmurs GI Palpation (GI): Soft to palpation and nontender Auscultation: normal bowel sounds Male General Exam: Yes normal external exam Penis: normal penis Scrotum: scrotum normal, testes descended bilaterally and no inguinal hernias Testes: no testicular mass Skin Rashes: no rashes Neuro General: patient oriented x3, moves all extremities, no focal motor deficits and deep tendon reflexes 2+ bilaterally Romberg Test: Negative Extrem Right lower extremity: no edema Left lower extremity: no edema Psych Affect: normal affect Attitude: cooperative Thought process: Normal thought process present Coding Level of Care Code Est Pt Prev Care 40-64y(12472) Diagnoses Screening for colon cancer Z12.11 Thoracic back pain M54.6 Foot callus L84 Additional Codes SAMINA-7 Assessment Billing - SAMINA-7 Assessment Tool: SAMINA-7 Assessment 42397 ([id number]) PHQ-9 - 53322 - PHQ-9 Billing: Yes ([id number]) Assessment & Plan Assessment & Plan (1) Screening for colon cancer: Code(s): Z12.11 - Encounter for screening for malignant neoplasm of colon Category: Medical (2) Thoracic back pain: Code(s): M54.6 - Pain in thoracic spine Category: Medical (3) Foot callus: Code(s): L84 - Corns and callosities Category: Medical Plan . Orders: Orders Comprehensive Lorraine. Panel Fast 01/19/24 Z00.00 - Encounter for general adult medical examination without abnormal findings Lipid Panel 01/19/24 Z00.00 - Encounter for general adult medical examination without abnormal findings TSH reflex Free T4 01/19/24 Z00.00 - Encounter for general adult medical examination without abnormal findings XR thoracic spine 2V Today M54.6 - Pain in thoracic spine Complete Blood Count Auto Diff 01/19/24 Z00.00 - Encounter for general adult medical examination without abnormal findings UA CC w/rflx Micro + Cult 01/19/24 Z00.00 - Encounter for general adult medical examination without abnormal findings Vitamin D 25-OH Total 01/19/24 Z00.00 - Encounter for general adult medical examination without abnormal findings Referrals Podiatry Referral L84 - [facility] Referral Z12.11 - Encounter for screening for malignant neoplasm of colon Medications: New prednisone 50 mg PO DAILY 5 days 5 tabs 0RF
== END 2024-01-22 11:27 | disposition home or self-care (01) ==
PROVIDERS: PCP Nurse Practitioner Family; Visit Provider Nurse Practitioner Family
DX: Z00.00 Encounter for general adult medical examination without abnormal findings (principal); Z12.11 Encounter for screening for malignant neoplasm of colon; M54.6 Pain in thoracic spine; L84 Corns and callosities

== ENCOUNTER → 2024-01-22 10:18 | Outpatient (BNVA) | payer OTHER, SELFPAY | PROVIDERS: PCP Nurse Practitioner Family; Visit Provider Nurse Practitioner Family | DX: Z00.00 Encounter for general adult medical examination without abnormal findings (principal); M54.6 Pain in thoracic spine; L84 Corns and callosities | CPT/HCPCS: 96127; 99396 ==

== ENCOUNTER 2024-04-19 11:41 | Outpatient (REF) | payer OTHER, SELFPAY ==
--- NOTE | ~2024-04-19 | XR_ITS ---
EXAMINATION: XR THORACIC SPINE CLINICAL INFORMATION: M54.6 - Pain in thoracic spine COMPARISON: None available. TECHNIQUE: 1 view thoracic spine. FINDINGS: Limited examination demonstrated no acute cortical disruption. No lytic or blastic lesions. XR/XR thoracic spine 1V IMPRESSION: Limited examination demonstrated no gross acute compression fracture deformity. Electronically signed by: River Hernandez MD 04/22/2024 10:36 AM CARLIE
--- OUTSIDE RECORDS SUMMARY | 2024-04-19 12:43 | XMS_ITS | Clinical Summary ---
Author Organization 175 [facility] Address [address] [place] [address] Phone Care Team Providers Care Journeyman Tool And Die Maker Name Role Phone Thomas Skinner NP Primary Care Provider Allergies No known active allergies Social History Tobacco Use Types Packs/Day Years Used Date Smoking Tobacco: Never Assessed Sex and Gender Information Value Date Recorded Sex Assigned at Not on file Legal Sex Male 5:00 AM EST Gender Identity Not on file Sexual Orientation Not on file Plan of Treatment Upcoming Encounters Date Type Department Care Team ([facility] Contact Info) Description 05/06/2024 3:30 PM EDT Consult Orthopedic Surgery [place] [address] [phone] Shen Machuca, DPM [address] [address] Health Maintenance Due Date Last Done Comments DTaP,Tdap,and Td Vaccines (1 - Tdap) 1997 Hepatitis B Vaccines (1 of 3 - 19+ 3-dose series) 1997 Cholesterol Screening (Lipid Panel) 01/30/2022 Colorectal Cancer Screening: Colonoscopy 01/30/2022 Depression Screening 01/30/2022 HIV Screening 01/30/2022 Hepatitis C Screening 01/30/2022 Social Influencers of Health Screening 01/30/2022 COVID-19 Vaccine (2023-2 5 season) 2023 Influenza Vaccine (#1) 2023 HIB Vaccines Aged Out No longer eligi ble based on patient's age to complete this topic HPV Vaccines Aged Out No longer eligi ble based on patient's age to complete this topic Hepatitis A Vaccines Aged Out No long er eligible based on patient's age to complete this topic IPV Vaccines Aged Out No longer eligi ble based on patient's age to complete this topic MMR Vaccines Aged Out No longer eligi ble based on patient's age to complete this topic Meningococcal ACWY Vaccine Aged Out N o longer eligible based on patient's age to complete this topic Meningococcal B Vacine Aged Out No lo nger eligible based on patient's age to complete this topic Pneumococcal Vaccine: Pediat rics (0 to 5 Years) and At-Risk Patients (6 to 64 Years) Aged Out No longer eligible b ased on patient's age to complete this topic RSV Immunization Patients Un marciano 20 months Aged Out No longer eligible b ased on patient's age to complete this topic Varicella Vaccines Aged Out No longer eligible based on patient's age to complete this topic Insurance [facility] [employer] Care Teams Journeyman Tool And Die Maker Relationship Specialty Start Date End Date Thomas Skinner NP [address] [place], [place] PCP - General Family Medicine 02/08/24
== END 2024-04-19 11:42 | disposition home or self-care (01) ==
LOC: HO.HMGCX 11:41
PROVIDERS: PCP Nurse Practitioner Family; Visit Provider Nurse Practitioner Family
DX: M54.6 Pain in thoracic spine (principal)
CPT/HCPCS: 72020

== ENCOUNTER → 2024-04-19 11:43 | Outpatient (BNV) | payer OTHER, SELFPAY | PROVIDERS: PCP Nurse Practitioner Family; Visit Provider Radiology Diagnostic Radiology | DX: M54.6 Pain in thoracic spine (principal) | CPT/HCPCS: 72020 ==

== ENCOUNTER 2024-04-20 12:20 | Outpatient (REF) | payer OTHER, SELFPAY ==
[2024-04-20 13:32] LABS: MANUAL DIFF FLAG NO
[2024-04-20 13:46] LABS: Appearance Urine Clear; Color Urine Yellow; Glucose Urine UA Negative (Negative); Leukocyte Esterase Urine Negative (Negative); Nitrite Urine Negative (Negative); Specific Gravity - Urine 1.025 (1.005-1.025); Urine Blood Negative (Negative); Urine Ketones Negative (Negative); Urine Protein Negative (Neg-Trace)
[2024-04-20 13:57] LABS: Basophils Absolute Auto 0.1 X10*3/uL (0.0-0.2); Basophils Percent Auto 0.8 % (0-2); Eosinophils Absolute Auto 0.1 X10*3/uL (0.0-0.4); Eosinophils Percent Auto 1.3 % (0-4); Hematocrit 41.3 % (42.0-52.0); Imm Gran Abs Auto 0.02 X10*3/uL (0.00-0.03); Imm Gran Pct Auto 0.3 % (0.0-0.4); Lymphocytes Absolute Auto 2.3 X10*3/uL (1.2-4.9); Lymphocytes Percent Auto 29.1 % (20-40); Mean Corpuscular HGB Conc 33.9 g/dl (31.0-36.0); Mean Corpuscular Hemoglobin 31.7 pg (27.0-33.0); Mean Corpuscular Volume 93.4 fL (80.0-98.0); Mean Platelet Volume 10.5 fL (9.4-12.4); Monocytes Absolute Auto 0.8 X10*3/uL (0.1-1.2); Monocytes Percent Auto 10.8 % (2-11); Neutrophils Absolute Auto 4.5 x10*3/uL (2.0-8.3); Neutrophils Percent Auto 57.7 % (45-73); Platelet Count 253 X10*3/uL (160-400); Red Blood Count 4.42 X10*6/uL (4.60-5.80); Red Cell Distribution Width 13.6 % (11.0-16.0); White Blood Count 7.8 X10*3/uL (4.8-10.8)
[2024-04-20 14:05] LABS: Alanine Aminotransferase 31 U/L (0-40); Alkaline Phosphatase 79 U/L (39-117); Anion Gap 11 (12-20); Aspartate Amino Transferase 33 U/L (5-37); Bilirubin Total 0.5 mg/dL (0.0-1.0); Blood Urea Nitrogen 17 mg/dL (9-16); Carbon Dioxide 24 mmol/L (22-29); Chloride 110 mmol/L (96-108); Cholesterol 133 mg/dL (<200); Estimated Glomerular Filt Rate > 60; Glucose Fasting 94 mg/dL (60-99); HDL Cholesterol 37 mg/dL (>40); LDL Cholesterol Calculated 83 mg/dL (<100); Potassium 4.8 mmol/L (3.3-5.1); Sodium 140 mmol/L (135-145); Total Protein 6.9 g/dL (6.5-8.0); Triglycerides 67 mg/dL (<150)
[2024-04-20 14:20] LABS: TSH reflex Free T4 0.35 uIU/mL (0.32-4.0); Vitamin D 25-OH Total 50.7 ng/mL (>30)
== END 2024-04-20 12:21 | disposition home or self-care (01) ==
LOC: HO.HMGCLDS 12:20
PROVIDERS: PCP Nurse Practitioner Family; Visit Provider Nurse Practitioner Family
DX: Z00.00 Encounter for general adult medical examination without abnormal findings (principal)
CPT/HCPCS: 36415; 80053; 80061; 81003; 82306; 84443; 85025

== ENCOUNTER 2024-07-15 12:39 | Outpatient (AMB) | payer OTHER, SELFPAY ==
--- NOTE | 2024-07-15 12:51 | A.OFFVIS_ITS ---
Vital Signs 07/15/24 12:52 BP 138/68 Blood Pressure Location Lt brachial Position Sitting Pulse Oximetry (%) 98 Oxygen Delivery Method Room Air Intake Visit Reasons: Colonoscopy screening Intake Note: Patient new consult for pre colonoscopy Patient denies any GI issues for today just urine frequency. Grinding Machine Operator Automatic Required: No Accompanied by: Self / Same As Patient Allergies No Known Allergies Allergy (Mild, Verified 07/15/24 12:51) NONE HPI HPI Colonoscopy screening: Details: 44 year old? male with past medical history of anxiety, ADHD is here today for pre colonoscopy screening.? Patient was sent to us by his PCP.? This is his first colonoscopy screening.? Patient denies any gastrointestinal symptoms in the past or at present.? Denies any personal or family history of gastrointestinal disease, colon polyps, or CRC.? Denies history of difficulty with sedation or anesthesia in the past.? Negative for history of sleep apnea.? Denies any history of cardiac, renal, pulmonary, or hepatic disease.?? No history of infectious? diseases like hepatitis A, B, C, HIV or tuberculosis.? Patient is not on any anticoagulation PFSH Medical History Vitamin D deficiency Hyperthyroidism Hx of attention deficit hyperactivity disorder Erectile dysfunction Surgical History H/O umbilical hernia repair (07/08/22) History of left inguinal hernia repair Hx of knee surgery Family History Father Knee problem Mother No problems noted. 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 Denies any issues with anesthesia in the past.? Denies any history of sleep apnea.? No history infectious diseases in the past or present.? Not on any anticoagulation therapy.? No family or personal history of colon cancer or polyps.? Patient denies melena, hematochezia, unintentional weight loss or ribbon like stools.? Discussed at length the pre-procedure,? prep, diet & medications as well as what to expect prior, during and after the procedure.?? Stressed the importance of good bowel prep.? Recommended the use of Vaseline or Calmoseptine OTC & baby wipes with bowel movements to promote comfort.? ?Patient verbalizes understanding and agrees to plan of care.? He was given the opportunity to ask questions and all questions answered.? We will see him after the procedure.? Medications: New bisacodyl (Dulcolax (bisacodyl)) take 4 tabs at noon the day before your colonoscopy 20 mg (4 x 5 mg) PO ONCE 1 day 4 tabs 0RF Z12.11 - Encounter for screening for malignant neoplasm of colon polyethylene glycol 3350 (Miralax) As directed by gastroenterology department at [facility] 238 grams PO ONCE 238 grams 0RF Z12.11 - Encounter for screening for malignant neoplasm of colon Coding Level of Care Code New Pt Level 3 (51522) Diagnoses Screening for colon cancer Z12.11 Time Spent (min) 40 Comment 30 minutes spent with patient and additional 10 minutes spent reviewing his records
[2024-07-15 12:52] VITALS: BP 138/68; O2SAT 98
--- OUTSIDE RECORDS SUMMARY | 2024-07-15 12:55 | XMS_ITS | Clinical Summary ---
Author Organization 175 [facility] Address [address] [place] [address] Phone Care Team Providers Care Laborer Carpentry Dock Name Role Phone VicThomas suarez Yong MENDOSA Primary Care Provider Allergies No known active allergies Social History Tobacco Use Types Packs/Day Years Used Date Smoking Tobacco: Never Assessed Sex and Gender Information Value Date Recorded Sex Assigned at Not on file Legal Sex Male 5:00 AM EST Gender Identity Not on file Sexual Orientation Not on file Plan of Treatment Upcoming Encounters Date Type Department Care Team ([facility] Contact Info) Description 08/07/2024 2:15 PM EDT Office Visit Orthopedic Surgery [facility] [address] [phone] Shen Machuca, DPM [address] [address] Health Maintenance Due Date Last Done Comments DTaP,Tdap,and Td Vaccines (1 - Tdap) 1997 Hepatitis B Vaccines (1 of 3 - 19+ 3-dose series) 1997 Cholesterol Screening (Lipid Panel) 01/30/2022 Colorectal Cancer Screening: Colonoscopy 01/30/2022 Depression Screening 01/30/2022 HIV Screening 01/30/2022 Hepatitis C Screening 01/30/2022 Social Influencers of Health Screening 01/30/2022 COVID-19 Vaccine ( - 2023-2 5 season) 2023 Influenza Vaccine (Season Ended) 2024 HIB Vaccines Aged Out No longer eligi [...] age to complete this topic Meningococcal B Vaccine Aged Out No l onger eligible based on patient's age to complete [...] patient's age to complete this topic [place] [address] [place] [address] [employer] Care Teams Laborer Carpentry Dock Relationship Specialty Start Date End Date Thomas Skinner NP [address] [place], [place] PCP - General Family Medicine 02/08/24
== END 2024-07-15 14:32 | disposition home or self-care (01) ==
LOC: HO.HGI 12:40
PROVIDERS: PCP Nurse Practitioner Family; Visit Provider Nurse Practitioner Family
DX: Z01.818 Encounter for other preprocedural examination (principal); Z12.11 Encounter for screening for malignant neoplasm of colon
CPT/HCPCS: 99202

== ENCOUNTER → 2024-07-15 12:39 | Outpatient (BNVA) | payer OTHER, SELFPAY | PROVIDERS: PCP Nurse Practitioner Family; Visit Provider Nurse Practitioner Family | DX: Z12.11 Encounter for screening for malignant neoplasm of colon (principal) | CPT/HCPCS: 99202 ==

== ENCOUNTER 2025-02-04 10:27 | Day surgery (SDC) | payer OTHER, SELFPAY ==
--- OUTSIDE RECORDS SUMMARY | 2025-01-28 12:42 | XMS_ITS | Clinical Summary ---
Author Organization 175 [facility] Address [address] [place] [address] Phone Care Team Providers Care Senior Javascript Engineer Name Role Phone Brody Beto NP Primary Care Provider [phone] Allergies No known active allergies Medications nystatin (MYCOSTATIN) 100,000 unit/gram powder Apply topically 2 (two) times a day. 15 g 5 08/08/19 26 Active Social History Tobacco Use Types Packs/Day Years Used Date Smoking Tobacco: Never Assessed Sex and Gender Information Value Date Recorded Sex Assigned at Not on file Legal Sex Male 5:00 AM EST Gender Identity Not on file Sexual Orientation Not on file Plan of Treatment Health Maintenance Due Date Last Done Comments Colorectal Cancer Screening: Colonoscopy 1978 DTaP,Tdap,and Td Vaccines (1 - Tdap) 1997 Hepatitis B Vaccines (1 of 3 - 19+ 3-dose series) 1997 Cholesterol Screening (Lipid Panel) 01/30/2022 HIV Screening 01/30/2022 Hepatitis C Screening 01/30/2022 Social Influencers of Health Screening 01/30/2022 Depression Screening 02/28/2024 COVID-19 Vaccine ( - 2024-2 6 season) 2024 Influenza Vaccine (#1) 2024 RSV Immunization Adult Patie nts (1 - 1-dose 75+ series) 2053 HIB Vaccines Aged Out No longer eligi [...] 5 Years) and At-Risk Patients (6 to 49 Years) Aged Out No longer eligible b ased on patient's age to complete this topic RSV Immunization Patients Un marciano 20 months Aged Out No longer eligible b ased on patient's age to complete this topic Varicella Vaccines Aged Out No longer eligible based on patient's age to complete this topic Insurance [facility] [employer] Care Teams Senior Javascript Engineer Relationship Specialty Start Date End Date Thomas Skinner NP [address] [place], [place] PCP - General Family Medicine 02/08/24
--- NOTE | 2025-01-31 12:56 | P.CONAN_ITS ---
Documented by User: Rosa Andrade NP 01/31/25 12:56 HPI - Anesthesia Eval Consult details Narrative: 44yo M for Colonoscopy PMFSH Active Problems Active Problems: All Active Problems Thoracic back pain (Acute) Screening for colon cancer (Acute) Tongue lesion (Acute) Pharyngitis (Acute) Atypical chest pain (Acute) Erectile dysfunction (Acute) Physical exam (Acute) Low TSH level (Acute) Foot callus (Acute) Physical exam (Acute) Plantar fasciitis, bilateral (Acute) Lesion of uvula (Acute) Impacted cerumen of right ear (Acute) Contusion of hand, right (Acute) Palpitations (Acute) Anxiety (Acute) Umbilical hernia (Acute) ADHD (Acute) Vitamin D deficiency (Acute) Hyperthyroidism (Acute) Erectile dysfunction (Acute) Past Medical History Medical History Hyperhidrosis Vitamin D deficiency Hyperthyroidism Hx of attention deficit hyperactivity disorder Erectile dysfunction Family History Family History Father Knee problem Mother No problems noted. Surgical History Surgical History H/O umbilical hernia repair (07/08/22) History of left inguinal hernia repair Hx of knee surgery History of Problems with Anesthesia: No Social History Social History Housing: Apartment Are you a primary care coordinator to a significant other at home: No Do you presently have visiting nurse or other home services: No Alcohol intake: never Patient Tobacco Use Status: Former Tobacco user Tobacco use type: Cigarette Cigarette Packs Per Day: 1 Years Smoked: 12 e-Cigarette/Vaping Use: Currently Using Second Hand Smoke Exposure: Yes Use of substances other than those prescribed or required for medical reasons: Yes Substance Use Type: Marijuana Substance Use Frequency: Daily Advance Directives: No Advance Directives Information Provided: Yes Current occupational status: employed 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 Current occupational exposures/hazards: Yes Cognitive needs: No Hearing needs: No Vision needs: No Meds Allergies Allergy/AdvReac Type Severity Reaction Status Date / Time No Known Allergies Allergy Mild NONE Verified 07/15/24 12:51 Home Medications ?Medication ?Instructions ?Recorded ?Confirmed ?Last Taken ?Type Adderall 20 mg PO 02/04/25 Unknown H istory Assessment and Plan Assessment Anesthesia Assessment: Chart Reviewed Final Anesthetic Review History of Problems with Anesthesia: No Documented by User: Esteban Hoffman MD 02/04/25 12:38 PMFSH Past Medical History Medical History Hyperhidrosis Vitamin D deficiency Hyperthyroidism Hx of attention deficit hyperactivity disorder Erectile dysfunction Family History Family History Father Knee problem Mother No problems noted. Family history of problems with anesthesia: No Surgical History Surgical History H/O umbilical hernia repair (07/08/22) History of left inguinal hernia repair Hx of knee surgery History of Problems with Anesthesia: No Social History Social History Housing: Apartment Are you a primary care coordinator to a significant other at home: No Do you presently have visiting nurse or other home services: No Alcohol intake: never Patient Tobacco Use Status: Former Tobacco user Tobacco use type: Cigarette Cigarette Packs Per Day: 1 Years Smoked: 12 e-Cigarette/Vaping Use: Currently Using Second Hand Smoke Exposure: Yes Use of substances other than those prescribed or required for medical reasons: Yes Substance Use Type: Marijuana Substance Use Frequency: Daily Advance Directives: No Advance Directives Information Provided: Yes Current occupational status: employed 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 [employer] Current occupational exposures/hazards: Yes Cognitive needs: No Hearing needs: No Vision needs: No Meds Allergies Allergy/AdvReac Type Severity Reaction Status Date / Time No Known Allergies Allergy Mild NONE Verified 07/15/24 12:51 Home Medications ?Medication ?Instructions ?Recorded ?Confirmed ?Last Taken ?Type Adderall 20 mg PO 02/04/25 Unknown H istory Exam Exam Date and Time: 02/04/25 Airway Mallampati Class: II TM Dist: >3cm Neck ROM: Full Denture: Lower Partial: Upper Heart: rrr Lungs: ctab vesicular Assessment and Plan Assessment Anesthesia Assessment: Anesthesia Plan Discussed and Smoking Cess. Discussed Final Anesthetic Review Family History of Problems with Anesthesia: No History of Problems with Anesthesia: No NPO: Yes ASA Class: II Final Preanesthetic Review: No Changes in Pt Med Stat, Meds/Allgs Chart Reviewed, Consent Obtained/Reviewed and Anes Risks/Benef Reviewed Patient Risk: Low Procedure Risk: Low Anesthetic Plan Anesthetic Plan: MAC: Disposition: Standard PACU
[2025-02-04 06:00] VITALS: BMI 25.7
[2025-02-04 12:07] VITALS: BMI 27.3
[2025-02-04 12:17] VITALS: BP 134/79; PULSE 72; RESP 16; TEMP 36.9; O2SAT 99
--- NOTE | 2025-02-04 12:17 | MHC.SHP ---
Pre-Procedural Eval Section A - 24 Hr Update-Section A only Date of Service: 02/04/25 Section B - Complete if H&P > 30 days Chief Complaint: screening Details of Present Illness: Hyperthyroidism Hx of attention deficit hyperactivity disorde Surgical History H/O umbilical hernia repair (07/08/22) History of left inguinal hernia repair Hx of knee surgery Present Medications: see Short Stay Collaborative assessment Allergies: Allergies Allergy/AdvReac Type Severity Reaction Status Date / Time No Known Allergies Allergy Mild NONE Verified 07/15/24 12:51 Review of Systems Review of Systems Comment: Ten point ROS negative Exam Exam Comment: Gen appear: No acute distress HEENT: no icterus Chest: No overt resp distress Abd: soft, nontender, nondistended Psych: Stable affect, answering questions appropriately Neuro: A/Ox3 noted to move all extremities spontaneously Ext: no peripheral edema Plan Diagnosis/Plan: Unchanged I have reviewed the history and physical and performed a pertinent physical examination on my patient. No changes have occurred unless specified. Time Spent With Patient Time: Total time managing care of this patient today ____ minutes.
[2025-02-04] MEDS: Lactated Ringers 1,000 ML 100 ML IVCONT (12:20)
[2025-02-04 13:47] VITALS: BP 105/57; PULSE 65; RESP 12; TEMP 36.6; O2SAT 95
--- NOTE | 2025-02-04 13:49 | P.OPN-COLO_ITS ---
Colonoscopy Operative Note Operative Note Date of Service: 02/04/25 Narrative: Procedure: Colonoscopy Indication: Screening Endoscopist: Betsey Chaves MD Anesthesia Provider: Dr Henok Heath Anesthesia type: MAC Instrument: Olympus [id number]-[id number] Consent: Indication, risks vs benefits, and alternatives were discussed with the patient who gave written informed consent to proceed. EKG, pulse, pulse oximetry and blood pressure were monitored throughout the procedure. Please see anesthesia flowsheet. Procedure: The patient was brought to the procedure room and placed in the left lateral decubitus position. IV medications were administered by the anesthesia provider in attendance. A digital rectal exam was performed which was normal. A distal attachment cap was affixed to the tip of the colonoscope which was then inserted through the anus and advanced through the colon to the cecum at 80 c m,and terminal ileum. Appendiceal orifice and ileocecal valve were identified. Mucosa was carefully examined under high definition white light as the instrument was slowly withdrawn in a retrograde panoramic fashion. Retroflexion was performed in rectum. The procedure was not difficult. There were no immediate obvious complications. The quality of the prep was BBPS: 2+2+2 = adequate Withdrawal time 17 minutes. Limitations: No limitations. Findings: Mucosa: Normal to cecum and terminal ileum. Protruding lesions: * 2 sessile polyp of size 4-6 mm in descending colon. Cold snare polypectomy was performed. The polyp was completely removed and retrieved. * Medium internal hemorrhoids without stigmata of recent bleeding. Impression: 1. Normal colon and terminal ileum mucosa 2. Total of 2 polyps removed 3. Internal hemorrhoids Recommendations: - Follow path results. - Repeat colonoscopy in 5 years due to prep.
[2025-02-04 14:02] VITALS: BP 115/68; PULSE 54; RESP 16; O2SAT 97
[2025-02-04 14:17] VITALS: BP 124/70; PULSE 74; RESP 16; O2SAT 99
== END 2025-02-04 14:44 | disposition home or self-care (01) ==
PROVIDERS: PCP Nurse Practitioner Family; Visit Provider Internal Medicine
PROC: 0DJD8ZZ Inspection of Lower Intestinal Tract, Via Natural or Artificial Opening Endoscopic (ICD-10-PCS; CPT 45378; principal; 2025-02-04 13:10)
DX: Z12.11 Encounter for screening for malignant neoplasm of colon (principal); K64.8 Other hemorrhoids; D12.4 Benign neoplasm of descending colon
CPT/HCPCS: 45385; 88305; J2003; J2250; J2405; J2704; J3010

== ENCOUNTER → 2025-02-04 10:27 | Outpatient (BNV) | payer OTHER, SELFPAY | PROVIDERS: PCP Nurse Practitioner Family; Visit Provider Internal Medicine | DX: Z12.11 Encounter for screening for malignant neoplasm of colon (principal); K63.5 Polyp of colon; K64.8 Other hemorrhoids | CPT/HCPCS: 45385 ==